=== PATIENT | male | born 1990 | race Two or more races ===

== ENCOUNTER 2018-09-03 12:54 | Emergency (ER) | payer SELFPAY ==
[~2018-09-03] VITALS: Ht 172.7 cm; Wt 86.2 kg
[~2018-09-03 12:54] MED LIST: NKM
--- NOTE | 2018-09-03 12:59 | NUR ---
ED Nurse Note: Pt BIBA from home due to RUQ abdomen and "unable to urinate" x 2 days. AOx4, VSS radha. Will cont to monitor.
--- NOTE | 2018-09-03 13:20 | NUR ---
ED Nurse Note: F/C 16 Fr was inserted by nurse and 350cc of clear and yellow urine came out upon insertion of catheral. pt tolerated well with procedure. pt reported "Abdominal pain is getting better now to 6/10." will keep monitoring for urine output and pain level.
[2018-09-03 13:47] LABS: APPEARANCE,URINE CLEAR; BILIRUBIN, URINE NEGATIVE (NEGATIVE); COLOR,URINE YELLOW; GLUCOSE, URINE (UA) NEGATIVE (NEGATIVE); KETONES,URINE NEGATIVE (NEGATIVE); LEUKOCYTE ESTERASE ,URINE NEGATIVE (NEGATIVE); NITRITE,URINE NEGATIVE (NEGATIVE); PH,URINE 6 (4.5-8.0); PROTEIN,URINE 2+ (NEGATIVE); UROBILINOGEN,URINE NORMAL MG/DL (0.0-1.0)
[2018-09-03 13:48] VITALS: BP 155/96
--- NOTE | 2018-09-03 14:00 | NUR ---
ED Nurse Note: F/C removed by nurse. pt tolerated well. 600cc of more urine was in the bag. urine clear and yellow. pt reported resolved pain level 0/10.
[2018-09-03] MEDS ORDERED: FLOMAX0.4 MG ORAL (14:09)
[2018-09-03 14:17] VITALS: BP 148/80
--- NOTE | 2018-09-03 14:18 | NUR ---
ED Nurse Note: PT. AAOX4. LEFT WITH STEADY GAIT. PT. EDUCATION DOEN REGARDING D/C PAPERS AND PRESCRIPTIONS.PT VERBALIZED THE UNDERSTANDING OF THE TEACHING. VSS.ID [place]MB[place] REMOVED
--- NOTE | 2018-09-04 14:10 | Emergency Room Report ---
History of Present Illness General Chief Complaint: General Complaint Source: Patient Present Illness HPI 28-year-old male presents to ED for evaluation. Patient brought in by EMS for evaluation of abdominal pain. States that he's been unable to urinate for the last 2 days. Pain is sharp, 8 out of 10, nonradiating. Initially started as dysuria a few weeks ago. Denies sick medical attention at the time. Denies fevers or chills. Denies flank pain. Denies nausea or vomiting. Denies any history of prostate problems. Denies taking any medications. No other aggravating relieving factors. Denies any other associated symptoms Allergies: Coded Allergies: No Known Allergies (Unverified , 09/03/18) Patient History Past Medical History: none Past Surgical History: none Pertinent Family History: none Social History: Denies: smoking, alcohol use, drug use Immunizations: UTD Reviewed Nursing Documentation: PMH: Agreed; PSxH: Agreed Nursing Documentation-PMH Past Medical History: No Stated History Review of Systems All Other Systems: negative except mentioned in HPI Physical Exam Vital Signs Date Time Temp Pulse Resp B/P (MAP) Pulse Ox O2 Delivery O2 Flow Rate FiO2 09/03/18 12:49 97.5 106 18 166/115 99 Room Air Sp02 EP Interpretation: reviewed, normal General Appearance: no apparent distress, alert, GCS 15, non-toxic Head: normocephalic, atraumatic Eyes: bilateral eye normal inspection, bilateral eye PERRL ENT: hearing grossly normal, normal pharynx, no angioedema, normal voice Neck: full range of motion, supple/symm/no masses Respiratory: chest non-tender, lungs clear, normal breath sounds, speaking full sentences Cardiovascular #1: regular rate, rhythm, no edema Cardiovascular #2: 2+ carotid (R), 2+ carotid (L), 2+ radial (R), 2+ radial (L) , 2+ dorsalis pedis (R), 2+ dorsalis pedis (L) Gastrointestinal: normal bowel sounds, soft, no guarding, no rebound, tenderness - sprapubic Rectal: deferred Genitourinary: normal inspection, no CVA tenderness Musculoskeletal: back normal, gait/station normal, normal range of motion, non- tender Neurologic: alert, oriented x3, responsive, motor strength/tone normal, sensory intact, speech normal Psychiatric: judgement/insight normal, memory normal, mood/affect normal, no suicidal/homicidal ideation Reflexes: 3+ bicep (R), 3+ bicep (L), 3+ tricep (R), 3+ tricep (L), 3+ knee (R) , 3+ knee (L) Skin: normal color, no rash, warm/dry, well hydrated Lymphatic: no adenopathy Medical Decision Making Diagnostic Impression: Primary Impression: Urinary retention ER Course Hospital Course 28-year-old M presents to ED complaining of urinary retention x 2 days Differential diagnoses include: obstruction, UTI, BPH Clinical course Patient placed on stretcher. After initial history and physical I ordered UA, marshall cather with immediate relief of obstruction and pain On reassessment patient feels much better. Abdomen no longer tender or distended. UA noted to be unremarkable. Discussed findings with patient. Patient has no known history of prostate problems. Not on any psychiatric drugs which could cause urinary retention. No signs of urinary infection. Marshall catheter removed. We'll discharged with Flomax. Patient states he does not have a PMD. We'll provide referralsl. safe for discharge Diagnosis - urinary retention Stable and discharged home with Rx Flomax. Instructed to followup with PMD/ urologist. Return to ED if symptoms recur or worsen Labs Test 09/03/18 13:40 Urine Color Yellow Urine Appearance Clear Urine pH 6 (4.5-8.0) Urine Specific [place] 1.015 (1.005-1.035) Urine Protein 2+ (NEGATIVE) Urine Glucose (UA) Negative (NEGATIVE) Urine Ketones Negative (NEGATIVE) Urine Blood 1+ (NEGATIVE) Urine Nitrite Negative (NEGATIVE) Urine Bilirubin Negative (NEGATIVE) Urine Urobilinogen Normal MG/DL (0.0-1.0) Urine Leukocyte Esterase Negative (NEGATIVE) Urine RBC 0-2 /HPF (0 - 0) Urine WBC 0 /HPF (0 - 0) Urine Squamous Epithelial Cells Occasional /LPF Urine Bacteria Occasional /HPF (NONE) Urine Mucus Occasional /LPF Last Vital Signs Date Time Temp Pulse Resp B/P (MAP) Pulse Ox O2 Delivery O2 Flow Rate FiO2 09/03/18 14:17 98.0 86 16 148/80 100 Room Air Status: improved Disposition: HOME, SELF-CARE Condition: Stable Scripts Tamsulosin HCl (Flomax) 0.4 Mg Cap.er.24h 0.4 MG ORAL DAILY for 10 Days, CAP Prov: Keith Augustin MD 09/03/18 Referrals: NOT CHOSEN IPA/,REFERRING (PCP) [facility] Patient Instructions: Acute Urinary Retention, Male, [id number] Keith Augustin MD Sep 04, 2018 14:10
== END 2018-09-03 14:30 | disposition home or self-care (01) ==
LOC: EDBD 12:54 → EMR 14:21
DX: R33.9 Retention of urine, unspecified (principal); R30.0 Dysuria
CPT/HCPCS: 51702; 81003; 99284

== ENCOUNTER 2018-09-10 13:35 | Emergency (ER) | payer SELFPAY ==
[~2018-09-10] VITALS: Ht 162.6 cm; Wt 72.6 kg
[~2018-09-10 13:35] MED LIST changes: +FLOMAX0.4 MG ORAL
--- NOTE | 2018-09-10 13:47 | NUR ---
ED Nurse Note: PT. AAOX4. AMBULATORY. CAME IN TO ER DUE TO UNABLE TO URINATE SINCE LAST NIGHT. ABDOMINAL PAIN NOTED ON LOWER QUADRANTS RATED 10/10. PER PT. HE HAS NOT SEEN A UROLOGIST. WAS RECENTLY SEEN IN ER FOR THE SAME S/S
--- NOTE | 2018-09-10 14:13 | Emergency Room Report ---
History of Present Illness General Chief Complaint: Male Urogenital Problems Source: Patient Present Illness HPI The patient presents again with inability to urinate. He was seen here September 03 and urinalysis had proteinuria. He was placed on Flomax. He returns again with inability to urinate. He passed a scant amount of urine 3 or 4 hours ago. He's been drinking a lot of fluids. His bladder feels full and is painful. The patient denies any prior medical problems. He denies fever or chills. He breaks out in sweat at times when trying to urinate. He feels anxious No chest pain, NVD, rashes, headache, extremity pain, dyspnea. Denies DM Denies drugs or alcohol (see tox). Allergies: Coded Allergies: No Known Allergies (Unverified , 09/03/18) Patient History Past Medical History: see triage record Social History: Denies: smoking, alcohol use, drug use - see tox Social History Narrative works at a restaurant Reviewed Nursing Documentation: PMH: Agreed; PSxH: Agreed Nursing Documentation-PMH Past Medical History: No Stated History Review of Systems All Other Systems: negative except mentioned in HPI Physical Exam Vital Signs Date Time Temp Pulse Resp B/P (MAP) Pulse Ox O2 Delivery O2 Flow Rate FiO2 09/10/18 13:39 98.2 150 18 178/101 96 Room Air Sp02 EP Interpretation: reviewed, normal General Appearance: alert, GCS 15, mild distress Head: normocephalic Eyes: bilateral eye normal inspection, bilateral eye PERRL, bilateral eye EOMI ENT: dry mucus membranes Neck: supple Respiratory: lungs clear, normal breath sounds Cardiovascular #1: regular rate, rhythm Cardiovascular #2: 2+ radial (R) Gastrointestinal: normal inspection, normal bowel sounds, non-distended, tenderness - suprapubic, other - Large bladder Genitourinary: no CVA tenderness, penis normal - no erection Musculoskeletal: back normal, gait/station normal, normal range of motion Neurologic: alert, oriented x3, grossly normal Psychiatric: anxious Skin: normal inspection, warm/dry Medical Decision Making Diagnostic Impression: Primary Impression: Abdominal pain Qualified Codes: R10.30 - Lower abdominal pain, unspecified Additional Impressions: Amphetamine abuse Dysuria Tachycardia ER Course Patient repeat presents with difficulty urinating. Differential includes UTI, benign prostatic hypertrophy, urinary obstruction, nephrotic syndrome amongst others. He's quite tachycardic at this time. Evaluation will be with EKG and labs. He will have a Puga placed. Puga drained 70 ml. Still no relief. No evidence of urinary retention. EKG was sinus rhythm, 84 with PT waves. Repeat on monitor = 142 ST with PVC, NSSTTW changes. Labs with normal CBC, CMP. Tox + amphetamine. Still with dysuria. Puga removed. Still with lower abdominal pain - pyridium given. Still with lower abdominal pain. NS begun and morphine ordered. CT abdomen and pelvis ordered. Discussed with family and friends. CT neg. Improved with analgesia. No emergency at this time. When confronted again about amphetamine he states he "just used yesterday". I discussed the drugs he took might be cut with something which causes him to have dysuria (consider cantharidin, though no priapism, hematuria or other GI bleeding). Patient stable for outpatient observation and treatment. Laboratory Tests Test 09/10/18 14:20 White Blood Count 7.9 K/UL (4.8-10.8) Red Blood Count 5.47 M/UL (4.70-6.10) Hemoglobin 16.4 G/DL (14.2-18.0) Hematocrit 47.7 % (42.0-52.0) Mean Corpuscular Volume 87 FL (80-99) Mean Corpuscular Hemoglobin 30.0 PG (27.0-31.0) Mean Corpuscular Hemoglobin Concent 34.3 G/DL (32.0-36.0) Red Cell Distribution Width 11.4 % (11.6-14.8) L Platelet Count 270 K/UL (150-450) Mean Platelet Volume 7.6 FL (6.5-10.1) Neutrophils (%) (Auto) 71.2 % (45.0-75.0) Lymphocytes (%) (Auto) 20.9 % (20.0-45.0) Monocytes (%) (Auto) 6.8 % (1.0-10.0) Eosinophils (%) (Auto) 0.3 % (0.0-3.0) Basophils (%) (Auto) 0.8 % (0.0-2.0) Urine Color Yellow Urine Appearance Clear Urine pH 6 (4.5-8.0) Urine Specific [place] 1.020 (1.005-1.035) Urine Protein 3+ (NEGATIVE) H Urine Glucose (UA) Negative (NEGATIVE) Urine Ketones 1+ (NEGATIVE) H Urine Blood 1+ (NEGATIVE) H Urine Nitrite Negative (NEGATIVE) Urine Bilirubin Negative (NEGATIVE) Urine Urobilinogen Normal MG/DL (0.0-1.0) Urine Leukocyte Esterase Negative (NEGATIVE) Urine RBC 2-4 /HPF (0 - 0) H Urine WBC 0-2 /HPF (0 - 0) Urine Squamous Epithelial Cells Few /LPF (NONE/OCC) Urine Amorphous Sediment Many /LPF (NONE) H Urine Bacteria Moderate /HPF (NONE) H Urine Granular Casts 2-4 /LPF (NONE) H Sodium Level 141 MMOL/L (136-145) Potassium Level 3.5 MMOL/L (3.5-5.1) Chloride Level 103 MMOL/L (98-107) Carbon Dioxide Level 23 MMOL/L (21-32) Anion Gap 16 mmol/L (5-15) H Blood Urea Nitrogen 9 mg/dL (7-18) Creatinine 0.9 MG/DL (0.55-1.30) Estimate Glomerular Filtration Rate > 60 mL/min (>60) Glucose Level 131 MG/DL (74-106) H Calcium Level 9.4 MG/DL (8.5-10.1) Total Bilirubin 0.4 MG/DL (0.2-1.0) Aspartate Amino Transferase (AST) 31 U/L (15-37) Alanine Aminotransferase (ALT) 67 U/L (12-78) Alkaline Phosphatase 107 U/L (46-116) Total Protein 8.5 G/DL (6.4-8.2) H Albumin 4.6 G/DL (3.4-5.0) Globulin 3.9 g/dL Albumin/Globulin Ratio 1.2 (1.0-2.7) Lipase 79 U/L (73-393) Urine Opiates Screen Negative (NEGATIVE) Urine Barbiturates Screen Negative (NEGATIVE) Phencyclidine (PCP) Screen Negative (NEGATIVE) Urine Amphetamines Screen Positive (NEGATIVE) H Urine Benzodiazepines Screen Negative (NEGATIVE) Urine Cocaine Screen Negative (NEGATIVE) Urine Marijuana (THC) Screen Negative (NEGATIVE) Serum Alcohol 6 mg/dL EKG Diagnostic Results Rate: tachycardiac Rhythm: NSR ST Segments: other - on the monitor he has ST - repeating EKG Rhythm Strip Diag. Results EP Interpretation: yes Rhythm: no PVC's, no ectopy, other - Sinus tachycardia CT/MRI/US Diagnostic Results CT/MRI/US Diagnostic Results : Imaging Test Ordered: abd/pelvis Impression no surgical pathology No stones/hydronephrosis Last Vital Signs Date Time Temp Pulse Resp B/P (MAP) Pulse Ox O2 Delivery O2 Flow Rate FiO2 09/10/18 20:01 98.2 110 20 151/96 98 Room Air 108 Status: improved Disposition: HOME, SELF-CARE Condition: Improved Scripts Ibuprofen* (MOTRIN*) 600 Mg Tablet 600 MG ORAL Q6H PRN for For Pain, #16 TAB Prov: Aaron Naranjo MD 09/10/18 Acetaminophen (Tylenol) 325 Mg Tablet 650 MG ORAL Q6H PRN for Prn Pain/Headache/Temp > 101, #20 TAB 0 Refills Prov: Aaron Naranjo MD 09/10/18 Phenazopyridine Hcl* (PYRIDIUM*) 100 Mg Tablet 100 MG ORAL THREE TIMES A DAY, #10 TAB Prov: Aaron Naranjo MD 09/10/18 Aaron Naranjo MD Sep 10, 2018 14:13
[2018-09-10 14:47] LABS: APPEARANCE,URINE CLEAR; BASOPHILS % (AUTO) 0.8 % (0.0-2.0); BILIRUBIN, URINE NEGATIVE (NEGATIVE); EOSINOPHILS % (AUTO) 0.3 % (0.0-3.0); GLUCOSE, URINE (UA) NEGATIVE (NEGATIVE); HEMATOCRIT 47.7 % (42.0-52.0); HEMOGLOBIN 16.4 G/DL (14.2-18.0); KETONES,URINE 1+ (NEGATIVE); LEUKOCYTE ESTERASE ,URINE NEGATIVE (NEGATIVE); LYMPHOCYTES % (AUTO) 20.9 % (20.0-45.0); MEAN CORPUSCULAR VOLUME 87 FL (80-99); MONOCYTES % (AUTO) 6.8 % (1.0-10.0); NEUTROPHILS % (AUTO) 71.2 % (45.0-75.0); NITRITE,URINE NEGATIVE (NEGATIVE); PH,URINE 6 (4.5-8.0); PLATELET COUNT 270 K/UL (150-450); PROTEIN,URINE 3+ (NEGATIVE); RED BLOOD COUNT 5.47 M/UL (4.70-6.10); RED CELL DISTRIBUTION WIDTH 11.4 % (11.6-14.8); UROBILINOGEN,URINE NORMAL MG/DL (0.0-1.0); WHITE BLOOD COUNT 7.9 K/UL (4.8-10.8)
[2018-09-10 14:49] LABS: COLOR,URINE YELLOW
[2018-09-10 14:53] LABS: ANION GAP 16 mmol/L (5-15); BLOOD UREA NITROGEN 9 mg/dL (7-18); CALCIUM 9.4 MG/DL (8.5-10.1); CARBON DIOXIDE 23 MMOL/L (21-32); CHLORIDE 103 MMOL/L (98-107); CREATININE 0.9 MG/DL (0.55-1.30); POTASSIUM 3.5 MMOL/L (3.5-5.1); SODIUM 141 MMOL/L (136-145)
[2018-09-10 14:59] LABS: ALANINE AMINOTRANSFERASE 67 U/L (12-78); ALBUMIN 4.6 G/DL (3.4-5.0); ALBUMIN/GLOBULIN RATIO 1.2 (1.0-2.7); ALKALINE PHOSPHATASE 107 U/L (46-116); ASPARTATE AMINO TRANSFERASE 31 U/L (15-37); BILIRUBIN,TOTAL 0.4 MG/DL (0.2-1.0)
[2018-09-10 16:26] VITALS: BP 152/88
[2018-09-10] MEDS ORDERED: Isovue-300 100ml vial INJ PRN (17:00)
[2018-09-10] MEDS ORDERED: Morphine Sulfate 4mg/ml Inj (IV/IM USE ONLY) IVP ONE (17:00)
--- NOTE | 2018-09-10 19:30 | NUR ---
ED Nurse Note: RECIEVED REPORT FROM CHENTE SAEZ TO [facility]ME [facility], PT IN BED AWAKE, ALERT AND ORIENTED X 4, AT BEDSIDE, PT IS ON CARDIAC MONITORIG, HAS SLIGHTLY INCREASED HEART RATE AND STATES HAS MILD CHEST PAINA T 10/01, PT STATES HE IS HERE FOR CHEST PAIN, STATING HE TOOK SOME DRUG WITH A FRIEND AND IT MADE HIS CHEST POUND AND HS IS PARANOID, PT DOES ELICIT PARANOID BEHAVIORS, TAKING OFF EQUIPMENT AND ASKING WHY B/P CUFF IS TIGHT, PT DECLINES DYSURIA, WILL RESUME CARE RODERED AND CONTINUE TO CLOSELY MONITOR.
[2018-09-10] MEDS ORDERED: IBUPROFEN600 MG ORAL (19:31)
[2018-09-10] MEDS ORDERED: PHENAZOPYRIDIN100 MG ORAL (19:31)
[2018-09-10] MEDS ORDERED: TYLENOL325 MG ORAL (19:31)
[2018-09-10 19:35] VITALS: BP 151/96
--- NOTE | 2018-09-10 20:00 | NUR ---
ED Nurse Note: pt being d/c to home, awake, alert and oriented x 4, ambulatory with steady gait, no cp, no sob, iv line and arm band removed without complications, pt given f/u info and after care instructions and re-verbalizes proper medication administration, nad noted during d/c to home with family.
[2018-09-10 20:01] VITALS: BP 151/96
--- NOTE | 2018-09-11 10:54 | Diagnostic Imaging Report ---
Indication: Abdominal pain Technique: Continuous helical transaxial imaging of the abdomen and pelvis was obtained from the lung bases to the pubic symphysis during intravenous contrast administration. Coronal 2-D reformats were also obtained. Study obtained in a Siemens sensation [address] Automatic Exposure Control was utilized. Total Dose length Product (DLP): 950.[address] Dose Index Volume (CTDIvol): 16.82 mGy Comparison: None Findings: The lung bases are clear. Small hiatal hernia noted. The gallbladder, liver and spleen, kidneys, pancreas adrenal glands appear unremarkable. There is no free fluid. Appendix is normal. Small amount of air noted within the bladder. Correlate clinically. Diverticula noted in the colon. IMPRESSION: Air in the bladder. This could be iatrogenic from recent Puga placement. In the absence of such history, infection is a presumed. Normal appendix. Small hiatal hernia. The CT scanner at [facility] is accredited by the [employer] and the scans are performed using dose optimization techniques as appropriate to a performed exam including Automatic Exposure control.
--- NOTE | 2018-09-11 14:24 | Diagnostic Imaging Report ---
Indication: Dyspnea Comparison: None A single view chest radiograph was obtained. Findings: Cardiomediastinal appearance is within normal limits for age. The lungs are clear. Pulmonary vascularity is appropriate. The diaphragmatic contour is smooth and costophrenic angles are sharp. No pleural effusions are identified. The bones are unremarkable. Impression: No acute findings
== END 2018-09-10 20:03 | disposition home or self-care (01) ==
LOC: EMR 13:50
DX: R30.0 Dysuria (principal); R10.30 Lower abdominal pain, unspecified; F15.10 Other stimulant abuse, uncomplicated; R00.0 Tachycardia, unspecified
CPT/HCPCS: 36415; 51702; 71045; 74177; 80053; 80307; 81003; 83690; 85025; 87086; 93005; 96361; 96374; 96375; 99284; G0480; J2270; J2405; Q9967; 80329